=== PATIENT | male | born 1985 | race Caucasian/White ===

== ENCOUNTER → 2016-05-28 | Outpatient (CLI) | payer BC ==
[~2016-05-28] MED LIST: CLIN-73 PO; IBUP-1542 PO
--- NOTE | 2016-05-28 15:12 | RADRPT ---
PROCEDURE: Renal scan flow and function study CLINICAL INDICATION: 30 -year-old patient with a malformation of the right kidney, for renal functi on assessment. TECHNIQUE: Following the intravenous injection of 9.8 mCi of Tc-99m MAG3, renal scan, flow and fun ction study was obtained. COMPARISON: No prior renal scans. FINDINGS: Blood flow phase of the study demonstrates normal bolus aortic transit time, mildly to moderately de creased blood flow to the right kidney and normal blood flow to the left kidney. Function phase of the study demonstrates mildly to moderately reduced initial extraction of the righ t kidney and normal initial extraction of the left kidney. On the delayed views, there is no evidence of abnormal retention of radionuclide in both kidneys. The right kidney is small in size. Split function is 84 % for the left kidney and 16 % for the right kidney. IMPRESSION: 1. Mildly to moderately decreased flow and function of the small right kidney. 2. Normal flow and function of the normal size left kidney. 3. Split function is 84 % for the left kidney and 16 % for the right kidney. RPTAT: HH .Rhonda Link MD, MD Date Time Electronically viewed and signed by .Rhonda Link MD, on 05/28/2016 15:12 .L/
== END | disposition home or self-care (01) ==
LOC: NUC 13:17
PROVIDERS: ATTEND Internal Medicine
DX: Q63.9 Congenital malformation of kidney, unspecified (principal)
CPT/HCPCS: 78707; A9562